=== PATIENT | female | born 1975 | race Caucasian/White ===

== ENCOUNTER 2017-10-10 14:12 | Emergency (ER) | payer OTHER ==
[~2017-10-10] VITALS: Ht 162.6 cm; Wt 57.6 kg
[~2017-10-10 14:12] MED LIST: BACTRIM DS TAB1 EACH PO; HERBAL ENERGY1 EACH; PROBIOTIC1 EACH
[2017-10-10] MEDS ORDERED: IBUPROFEN 800800 M1 PO (15:46)
[2017-10-10 15:57] VITALS: BP 120/70
== END 2017-10-10 15:59 | disposition home or self-care (01) ==
LOC: M.ERS 14:12
DX: R07.81 Pleurodynia (principal)

== ENCOUNTER 2019-03-03 15:49 | Emergency (ER) | payer OTHER ==
[~2019-03-03] VITALS: Ht 160 cm; Wt 58.1 kg
[~2019-03-03 15:49] MED LIST changes: +IBUPROFEN 800800 M1 PO
[2019-03-03 17:44] LABS: ABSOLUTE BASOPHILS 0.1 thou/uL (0.0-0.2); ABSOLUTE EOSINOPHILS 0.2 thou/uL (0.0-0.7); ABSOLUTE LYMPHOCYTES 2.3 thou/uL (0.8-5.3); ABSOLUTE MONOCYTES 0.9 thou/uL (0.0-1.2); ABSOLUTE NEUTROPHILS 7.9 thou/uL (1.6-8.1); BASOPHILS 0.5 %; EOSINOPHILS 1.8 %; HEMATOCRIT 42.1 % (37.0-47.0); HEMOGLOBIN 14.2 gm/dL (12.0-15.0); LYMPHOCYTES 20.1 %; MCH 30.2 pg (26.0-34.0); MCHC 33.7 g/dL (28.0-37.0); MCV 89.6 fL (80.0-100.0); MONOCYTES 7.6 %; MPV 9.9 fl. (7.2-11.1); NUCLEATED RBCS 0 /100WBC; PLATELET COUNT* 219 thou/uL (150-400); RDW-CV 12.9 % (10.5-14.5); WBC 11.3 thou/uL (4.0-11.0)
[2019-03-03 17:54] LABS: PROTIME 10.7 Seconds (9.20-11.50)
[2019-03-03 18:36] LABS: CALCIUM 8.8 mg/dL (8.5-10.1); POTASSIUM 3.8 mmol/L (3.5-5.1)
[2019-03-03 18:40] LABS: TOTAL BILIRUBIN 0.5 mg/dL (<0.1-1.0); TOTAL PROTEIN 7.5 g/dL (6.4-8.2)
[2019-03-03] MEDS ORDERED: ULTRAM 50MG TAB50 MG PO (19:01)
[2019-03-03] MEDS ORDERED: BUTALB-APAP-CA1 EACH PO (19:01)
[2019-03-03 19:25] VITALS: BP 110/68
== END 2019-03-03 19:28 | disposition home or self-care (01) ==
LOC: M.ERS 15:49
PROVIDERS: Personal Emergency Response Attendant
DX: R51 Headache (principal); Z98.890 Other specified postprocedural states

== ENCOUNTER 2019-05-14 20:14 | Emergency (ER) | payer OTHER ==
[~2019-05-14] VITALS: Ht 160 cm; Wt 54.0 kg
[~2019-05-14 20:14] MED LIST changes: +BUTALB-APAP-CA1 EACH PO; +ULTRAM 50MG TAB50 MG PO
[2019-05-14 20:46] LABS: ABSOLUTE BASOPHILS 0.1 thou/uL (0.0-0.2); ABSOLUTE EOSINOPHILS 0.2 thou/uL (0.0-0.7); ABSOLUTE LYMPHOCYTES 2.6 thou/uL (0.8-5.3); ABSOLUTE MONOCYTES 0.6 thou/uL (0.0-1.2); ABSOLUTE NEUTROPHILS 4.5 thou/uL (1.6-8.1); BASOPHILS 0.6 %; EOSINOPHILS 3.1 %; HEMOGLOBIN 12.9 gm/dL (12.0-15.0); LYMPHOCYTES 32.7 %; MCH 30.6 pg (26.0-34.0); MCHC 33.9 g/dL (28.0-37.0); MCV 90.3 fL (80.0-100.0); MPV 10.3 fl. (7.2-11.1); NUCLEATED RBCS 0 /100WBC; PLATELET COUNT* 195 thou/uL (150-400); POLYS 55.6 %; RBC 4.21 mil/uL (4.20-5.00); RDW-CV 13.6 % (10.5-14.5); WBC 8.1 thou/uL (4.0-11.0)
[2019-05-14 20:56] LABS: CALCIUM 8.6 mg/dL (8.5-10.1); CREATININE 1.4 mg/dL (0.6-1.3)
[2019-05-14 20:58] LABS: INR 1.1; POTASSIUM 2.9 mmol/L (3.5-5.1); PROTIME 11.2 Seconds (9.20-11.50)
[2019-05-14 21:08] LABS: ALBUMIN 3.6 g/dL (3.4-5.0); TOTAL BILIRUBIN 0.3 mg/dL (<0.1-1.0); TOTAL PROTEIN 6.6 g/dL (6.4-8.2)
[2019-05-14] MEDS ORDERED: TORADOL 10 MG T10 MG PO (23:07)
[2019-05-14] MEDS ORDERED: MEDROLDOSEPACK PO (23:07)
[2019-05-14 23:29] VITALS: BP 110/56
--- NOTE | 2019-05-15 09:12 | EKG ---
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1975 Requested By: Moon Zacarias Order Number: [id number] MD: Jason Thomas Measurements Intervals [place] Rate: 62 P: 84 SD: 117 QRS: 79 QRSD: 93 T: 67 QT: 414 QTc: 421 Interpretive Statements Sinus rhythm Borderline short SD interval Compared to ECG 03/18/2012 23:13:45 Sinus bradycardia no longer present Electronically Signed On 05-15-2019 9:11:27 CDT by Jason Thomas [email or web address] <ELECTRONICALLY SIGNED> By: Jason Thomas MD, [facility] 05/15/19 0911 19 19 Jason Thomas MD, [facility] /EPI
== END 2019-05-14 23:29 | disposition home or self-care (01) ==
LOC: M.ERS 20:14
PROVIDERS: Personal Emergency Response Attendant
DX: M94.0 Chondrocostal junction syndrome [Tietze] (principal); F17.210 Nicotine dependence, cigarettes, uncomplicated; Z98.890 Other specified postprocedural states

== ENCOUNTER 2019-05-31 12:22 | Inpatient (IN) | payer OTHER ==
[~2019-05-31] VITALS: Ht 160 cm; Wt 52.6 kg
[~2019-05-31 12:22] MED LIST changes: +MEDROLDOSEPACK PO; +TORADOL 10 MG T10 MG PO
[2019-05-31] MEDS ORDERED: TOPROL XL25 MG PO (12:29)
[2019-05-31 12:54] LABS: ABSOLUTE BASOPHILS 0.1 thou/uL (0.0-0.2); ABSOLUTE EOSINOPHILS 0.2 thou/uL (0.0-0.7); ABSOLUTE LYMPHOCYTES 2.3 thou/uL (0.8-5.3); ABSOLUTE MONOCYTES 0.5 thou/uL (0.0-1.2); ABSOLUTE NEUTROPHILS 5.4 thou/uL (1.6-8.1); BASOPHILS 0.7 %; EOSINOPHILS 1.9 %; HEMOGLOBIN 14.2 gm/dL (12.0-15.0); LYMPHOCYTES 27.6 %; MCH 30.3 pg (26.0-34.0); MCHC 33.7 g/dL (28.0-37.0); MCV 89.8 fL (80.0-100.0); MONOCYTES 6.3 %; MPV 10.1 fl. (7.2-11.1); NUCLEATED RBCS 0 /100WBC; PLATELET COUNT* 186 thou/uL (150-400); POLYS 63.5 %; RBC 4.67 mil/uL (4.20-5.00); RDW-CV 13.3 % (10.5-14.5); WBC 8.5 thou/uL (4.0-11.0)
[2019-05-31 13:02] LABS: CALCIUM 9.1 mg/dL (8.5-10.1); CREATININE 0.8 mg/dL (0.6-1.3); POTASSIUM 4.2 mmol/L (3.5-5.1)
[2019-05-31 13:17] LABS: ALBUMIN 3.9 g/dL (3.4-5.0); MAGNESIUM 2.1 mg/dL (1.8-2.4); TOTAL BILIRUBIN 0.5 mg/dL (<0.1-1.0); TOTAL PROTEIN 7.5 g/dL (6.4-8.2)
--- NOTE | 2019-05-31 15:08 | NUR ---
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
[2019-05-31 16:28] VITALS: BP 100/54
--- NOTE | 2019-05-31 16:30 | 2DMMODE ---
[place] [address] 2 D/M-MODE ECHOCARDIOGRAM Name: ASHLEY ALANIZ Room: [place] [address] ADM IN [facility].#: [id number] Admission: 05/31/19 Attend Phys: Janay Zheng Discharge: Date of : 75 Date of Service: 05/31/19 1629 Report #: [id number] THIS REPORT FOR: cc: [facility] - Clinic physician unknown [facility] - Clinic physician unknown Edin Olea MD [facility] ~ APPROVED REPORT Study performed: 05/31/2019 15:01:32 EXAM: Comprehensive 2D, Doppler, and color-flow Echocardiogram Patient Location: In-Patient Room #: er Status: routine BSA: 1.51 HR: 57 bpm BP: 109/55 mmHg Rhythm: NSR Other Information Study Quality: Good Indications Arrhythmia 2D Dimensions IVSd: 8.76 (7-11mm) LVOT Diam: 16.49 (18-24mm) LVDd: 42.90 mm PWd: 8.58 (7-11mm) LVDs: 28.07 (25-40mm) Aortic Root: 22.35 mm Volumes Left Atrial Volume (Systole) LA ESV Index: 14.10 mL/m2 Aortic Valve AoV Peak Ant.: 1.33 m/s AO Peak Gr.: 7.03 mmHg LVOT Max P.09 mmHg AO Mean Gr.: 3.68 mmHg LVOT Mean P.93 mmHg LVOT Max V: 1.01 m/s AO V2 VTI: 27.91 cm LVOT Mean V: 0.64 m/s LVOT V1 VTI: 20.22 [place] [address] 2 D/M-MODE ECHOCARDIOGRAM Name: ASHLEY ALANIZ Room: [address] IN [facility]#: [id number] Admission: 05/31/19 Attend Phys: Janay Zheng Discharge: Date of : 75 Date of Service: 05/31/19 1629 Report #: [id number] Mitral Valve E/A Ratio: 1.45 MV Decel. Time: 217.55 ms MV E Max Ant.: 0.85 m/s MV PHT: 63.09 ms MVA (PHT): 3.49 cm2 TDI E/Lateral E': 5.67 E/Medial E': 7.08 Medial E' Ant.: 0.12 m/s Lateral E' Ant.: 0.15 m/s Pulmonary Valve PV Peak Ant.: 1.17 m/s PV Peak Gr.: 5.51 mmHg Left Ventricle The left ventricle is normal size. There is normal LV segmental wall motion. There is normal left ventricular wall thickness. Left ventricular systolic function is normal. LVEF is 50-55%. The left ventricular diastolic function is normal. Right Ventricle The right ventricle is normal size. The right ventricular systolic function is normal. Atria The left atrium size is normal. The right atrium size is normal. Aortic Valve The aortic valve is normal in structure. No aortic regurgitation is present. There is no aortic valvular stenosis. Mitral Valve The mitral valve is normal in structure. There is no mitral valve regurgitation noted. No evidence of mitral valve stenosis. Tricuspid Valve The tricuspid valve is normal in structure. Unable to assess PA pressure. Trace tricuspid regurgitation. Pulmonic Valve The pulmonary valve is normal in structure. There is no pulmonic valvular regurgitation[place] [address] 2 D/M-MODE ECHOCARDIOGRAM Name: ASHLEY ALANIZ Room: [address] IN .R.#: [id number] Admission: 05/31/19 Attend Phys: Janay Zheng Discharge: Date of : 75 Date of Service: 05/31/19 1629 Report #: [id number] The aortic root is normal in size. IVC is normal in size and collapses >50% with inspiration. Pericardium There is no pericardial effusion. <Conclusion> The left ventricle is normal size. There is normal left ventricular wall thickness. Left ventricular systolic function is normal. LVEF is 50-55%. The left ventricular diastolic function is normal. IVC is normal in size and collapses >50% with inspiration. <ELECTRONICALLY SIGNED> By: Edin Olea MD, FACC 05/31/19 1629 28 28 Edin Olea MD, FACC /INF
--- NOTE | 2019-05-31 17:03 | EKG ---
[place] [address] ELECTROCARDIOGRAM REPORT Name: ASHLEY ALANIZ Room: [address] ADM IN [facility]#: [id number] Admission: 05/31/19 Attend Phys: Janay Zheng Discharge: Date of : 75 Date of Service: 05/31/19 1226 Report #: [id number] THIS REPORT FOR: //name// 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
[2019-05-31] MEDS ORDERED: LAXATIVE5 M1 PO (17:14)
[2019-05-31 17:38] VITALS: BP 98/44
--- NOTE | 2019-05-31 17:53 | NUR ---
RECEIEVIED REPORT FROM TAI RN IN ER OF EXPECTED ADMISSION AT 1620- DX: CHEST PAIN- PT ARRIVED TO UNIT RM [id number] 1628- INTERPRETER PLACED ORDERED, SB NOTED- PT A&O X4- CONT OF BOWEL/BLADDER- UP AD-LAMAR, STEADY GAIT NOTED- VS 98.5 18 98/44 55 100%ON RA- ABD SOFT/FLAT/NON-TENDER, BS X4 QUADS- LAST BM REPORTED 05/30/19- IV NOTED TO RIGHT HAND INTACT AND SL- PT DENIES ANY OPEN WOUNDS/SOARS- DENIES ANY CHEST PAIN AT TIME AT ADMISSION- ECHO NOTED TO BE COMPLETED IN ER, EF NOTED AT 50-55%- CARDIO CONSULTED NOTED- CALL LIGHT AND PERSONAL BELONGINGS WITH IN REACH- ALL NEEDS MET AT THIS TIME-WCTM
[2019-05-31 18:40] LABS: CHOLESTEROL 196 mg/dL (<200); HDL CHOLESTEROL 53 mg/dL (>40); LDL CHOLESTEROL 129 mg/dL (<100); SERUM ASSESSMENT Clear; TC:HDL 3.7 Ratio (Not establshd); TRIGLYCERIDE 71 mg/dL (<150); VLDL 14 mg/dL (<40)
[2019-05-31 19:13] LABS: AMP/METHAMP Negative (Negative); BARBITURATES Negative (Negative); BENZODIAZEPINES Negative (Negative); COCAINE Negative (Negative); METHADONE Negative (Negative); OPIATES Negative (Negative); PCP Negative (Negative); THC Negative (Negative)
[2019-05-31 19:55] VITALS: BP 117/54
[2019-06-01 00:06] VITALS: BP 100/44
[2019-06-01 04:15] VITALS: BP 94/46
--- NOTE | 2019-06-01 04:48 | NUR ---
PT SLEPT MOST OF SHIFT. ASSESSMENT DOCUMENTED. MEDS GIVEN PER E-APR. IV PATENT. NO REPORTS OF PAIN THIS SHIFT. PT REMAINED NPO AT MIDNIGHT. WILL CONTINUE WITH PLAN OF CARE.
[2019-06-01 07:32] VITALS: BP 98/57
--- NOTE | 2019-06-01 08:51 | NUR ---
ASSUMED CARE OF PT THIS AM AROUND 07- UX ARCHITECT IN PLACE ORDERED, TRACING SB- UPON ASSESSMENT PT NOTED TO BE RESTING IN BED- PT A&O X4- CONT OF BOWEL AND BLADDER- UP AD-LAMAR IN ROOM, STEADY GAIT NOTED- LCTA, RESP EVEN AND UN-LABORED- BP NOTED TO BE 98/57 HR 48, SCHEDULED METOPROLO HELD THIS AM- O2 SAT 96% ON RA- ABD SOFT/ROPUND/FLAT, BS X4 QUADS- LAST BM REPORTED X2 DAYS AGO- IV NOTED TO RIGHT HAND INTACT AND SL-PT DENIES ANY C/O PAIN/DISCOMFORT AT THIS TIME- CALL LIGHT AND PERSONAL BELONGINGS WITH IN REACH- PT MAKES NEEDS KNOWN- ALL NEEDS MET AT THIS TIME-WCTM
[2019-06-01 09:55] VITALS: BP 98/57
[2019-06-01] MEDS ORDERED: TOPROL XL25 MG PO (10:24)
[2019-06-01 11:33] VITALS: BP 101/57
== END 2019-06-01 16:00 | disposition home or self-care (01) | DRG 310 ==
LOC: M.ERS 12:22 → M.TBA-ER 13:54 → M.2W 16:42
PROVIDERS: Emergency Medicine Emergency Medical Services; Registered Nurse; ADMIT Internal Medicine
DX: I47.2 Ventricular tachycardia (principal); F17.210 Nicotine dependence, cigarettes, uncomplicated; F15.10 Other stimulant abuse, uncomplicated; Z71.6 Tobacco abuse counseling; Z79.899 Other long term (current) drug therapy

== ENCOUNTER 2019-12-20 22:54 | Emergency (ER) | payer OTHER ==
[~2019-12-20] VITALS: Ht 160 cm; Wt 48.5 kg
[~2019-12-20 22:54] MED LIST changes: +LAXATIVE5 M1 PO; +TOPROL XL25 MG PO
[2019-12-20] MEDS ORDERED: PROTONIX40 M2 PO (23:05)
[2019-12-20 23:15] LABS: ABSOLUTE BASOPHILS 0.1 thou/uL (0.0-0.2); ABSOLUTE EOSINOPHILS 0.4 thou/uL (0.0-0.7); ABSOLUTE LYMPHOCYTES 2.6 thou/uL (0.8-5.3); ABSOLUTE MONOCYTES 0.8 thou/uL (0.0-1.2); ABSOLUTE NEUTROPHILS 6.6 thou/uL (1.6-8.1); BASOPHILS 0.7 %; EOSINOPHILS 3.5 %; HEMATOCRIT 36.6 % (37.0-47.0); HEMOGLOBIN 12.2 gm/dL (12.0-15.0); LYMPHOCYTES 24.6 %; MCH 30.5 pg (26.0-34.0); MCHC 33.4 g/dL (28.0-37.0); MCV 91.3 fL (80.0-100.0); MONOCYTES 7.6 %; MPV 9.2 fl. (7.2-11.1); NUCLEATED RBCS 0 /100WBC; PLATELET COUNT* 195 thou/uL (150-400); POLYS 63.6 %; RBC 4.01 mil/uL (4.20-5.00); RDW-CV 12.8 % (10.5-14.5); WBC 10.4 thou/uL (4.0-11.0)
[2019-12-20 23:25] LABS: CALCIUM 8.9 mg/dL (8.5-10.1); CREATININE 0.9 mg/dL (0.6-1.3)
[2019-12-20 23:30] LABS: ALBUMIN 3.5 g/dL (3.4-5.0); TOTAL BILIRUBIN 0.2 mg/dL (<0.1-1.0); TOTAL PROTEIN 6.9 g/dL (6.4-8.2)
[2019-12-21] MEDS ORDERED: NORCO 5-325 TA1 EAC2 PO (00:03)
[2019-12-21] MEDS ORDERED: CIPROFLOXACIN500 M1 PO (00:03)
[2019-12-21 00:11] LABS: URINE BILIRUBIN NEGATIVE (Negative); URINE BLOOD 3+ (Negative); URINE CLARITY CLEAR; URINE COLOR YELLOW; URINE GLUCOSE-RANDOM NEGATIVE (Negative); URINE KETONES NEGATIVE (Negative); URINE LEUKOCYTES-REFLEX NEGATIVE (Negative); URINE NITRITE-REFLEX NEGATIVE (Negative); URINE PROTEIN NEGATIVE (Negative); URINE SPECIFIC GRAVITY 1.025 (1.005-1.030); URINE UROBILINOGEN 0.2 E.U./dl (0.2-1.0)
[2019-12-21 00:30] VITALS: BP 102/64
[2019-12-21 00:36] LABS: CASTS None Seen /LPF (None Seen); MUCUS 0-3 Light strn/LPF (None Seen); SQUAMOUS 4-10 Moderate /LPF (0-3)
[2019-12-21 00:37] LABS: BACTERIA-REFLEX 1-9 Few /HPF (None Seen); URINE RBC >20 Many /HPF (0-2); URINE WBC-REFLEX 0-5 Rare /HPF (0-5)
[2019-12-21 00:38] LABS: CRYSTALS None Seen /LPF (None Seen)
== END 2019-12-21 00:30 | disposition home or self-care (01) ==
LOC: M.ERS 22:54
PROVIDERS: Family Medicine
DX: N20.0 Calculus of kidney (principal); K21.9 Gastro-esophageal reflux disease without esophagitis; F17.210 Nicotine dependence, cigarettes, uncomplicated; Z98.890 Other specified postprocedural states

== ENCOUNTER 2020-06-27 14:08 | Emergency (ER) | payer OTHER ==
[~2020-06-27] VITALS: Ht 160 cm; Wt 50.8 kg
[~2020-06-27 14:08] MED LIST changes: +CIPROFLOXACIN500 M1 PO; +NORCO 5-325 TA1 EAC2 PO; +PROTONIX40 M2 PO
[2020-06-27] MEDS ORDERED: IBUPROFEN 600600 M1 PO (15:55)
[2020-06-27 16:07] VITALS: BP 123/53
== END 2020-06-27 16:08 | disposition home or self-care (01) ==
LOC: M.ERS 14:08
DX: S93.491A Sprain of other ligament of right ankle, initial encounter (principal); K21.9 Gastro-esophageal reflux disease without esophagitis; Z98.890 Other specified postprocedural states; W01.0XXA Fall on same level from slipping, tripping and stumbling without subsequent striking against object, initial encounter; Y93.89 Activity, other specified; Y92.89 Other specified places as the place of occurrence of the external cause; Y99.8 Other external cause status

== ENCOUNTER 2021-03-25 18:06 | Emergency (ER) | payer OTHER ==
[~2021-03-25] VITALS: Ht 160 cm; Wt 49.0 kg
[~2021-03-25 18:06] MED LIST changes: +IBUPROFEN 600600 M1 PO
[2021-03-25] MEDS ORDERED: DIFLUCAN100 MG PO (21:07)
[2021-03-25] MEDS ORDERED: NYSTATIN100000 UNI SW&SWALLOW (21:07)
[2021-03-25 21:25] VITALS: BP 120/60
--- NOTE | 2021-03-26 09:47 | EKG ---
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1975 Requested By: Stacey Nash Order Number: [id number] MD: Ancelmo Freitas Measurements Intervals [place] Rate: 51 P: 82 [place]: 131 QRS: 80 QRSD: 85 T: 76 QT: 417 QTc: 385 Interpretive Statements Sinus rhythm Biatrial enlargement suggested Compared to ECG 05/31/2019 12:26:55 Biatrial enlargement suggested Electronically Signed On 03-26-2021 9:47:30 TRIAGE RN by Ancelmo Freitas [email or web address] <ELECTRONICALLY SIGNED> By: Ancelmo Freitas MD, [facility] 03/26/21 0947 183 31 Ancelmo Freitas MD, [facility] /EPI
== END 2021-03-25 21:27 | disposition home or self-care (01) ==
LOC: M.ERS 18:06
DX: U07.1 COVID-19 (principal); K21.9 Gastro-esophageal reflux disease without esophagitis; F17.200 Nicotine dependence, unspecified, uncomplicated; Z98.890 Other specified postprocedural states; Z98.82 Breast implant status; Z79.899 Other long term (current) drug therapy